=== PATIENT | male | born 1950 | race Caucasian/White ===

== ENCOUNTER 2018-07-05 11:38 | Observation (INO) | payer MEDICARE ==
[~2018-07-05] VITALS: Ht 170.2 cm; Wt 82.3 kg
[~2018-07-05 11:38] MED LIST: ASACOL HD800 MG PO; ASPIRIN325 MG PO; AUGMENTIN 875-1 EACH PO; CETIRIZINE HCL10 MG PO; CIPRO500 MG PO; DICYCLOMINE HCL10 MG PO; DICYCLOMINE HCL20 MG PO; FISH OIL500 M1 PO; FLAGYL250 MG PO; FLAX SEED OIL1000 MG PO; FOLIC ACID1 MG PO; LISINOPRIL10 MG PO; LOPID600 MG PO; METRONIDAZOLE500 MG PO; MULTIVITAMINS1 EAC8 PO; NIACIN500 M2 PO; PREDNISONE10 MG PO; RANITIDINE HCL150 MG PO; SIMVASTATIN20 MG PO; ZOFRAN ODT4 MG PO; [UNRECOGNIZED DRUG - OTHER] PO
[2018-07-05] MEDS ORDERED: ONDANSETRON HCL INJ 2MG/ML 2ML 2 MG/ML VIAL IV STA ×2 (11:44→16:21)
[2018-07-05] MEDS ORDERED: SODIUM CHLORIDE 0.9% 1000ML 1,000 ML IV STA (11:44)
[2018-07-05] MEDS ORDERED: DIATRIZOATE MEGL/DIATRIZOA SOD 30 ML BTL PO ONE (12:13)
[2018-07-05] MEDS: PIPER-TAZ 3.375 GM 50 ML IV SCH ×2 (13:00→23:28)
[2018-07-05 13:12] LABS: CLARITY,URINE CLEAR (CLEAR); COLOR,URINE YELLOW (YELLOW)
[2018-07-05 13:13] LABS: BILIRUBIN,URINE NEGATIVE (NEGATIVE); KETONES,URINE 1+ (NEGATIVE); LEUKOCYTE ESTERASE ,URINE NEGATIVE (NEGATIVE); NITRITE,URINE NEGATIVE (NEGATIVE); PROTEIN,URINE DIPSTICK NEGATIVE (NEGATIVE); URINE UROBILINOGEN 0.2 mg/dL (0.2 - 1)
[2018-07-05 13:26] LABS: BACTERIA,URINE FEW /HPF; EPITHELIAL CELLS,URINE RARE /LPF; RBC,URINE 0-5 /HPF (0-5); WBC,URINE (MAN) 0-5 /HPF (0-5)
[2018-07-05 13:37] LABS: BASOPHILS % 0.3 % (0.0-1.0); EOSINOPHILS % 0.1 % (0.0-6.0); HEMOGLOBIN 14.6 g/dL (14.0-18.0); LYMPHOCYTES # (AUTO) 1.1 (1.0-3.2); LYMPHOCYTES % 11.4 % (18.0-39.1); MEAN CORPUSCULAR HEMOGLOBIN 29.3 pg (28-32); MEAN CORPUSCULAR VOLUME 86.3 fL (81-99); MONOCYTES # (AUTO) 0.5 (0.2-0.8); MONOCYTES % 5.4 % (4.4-11.3); NEUTROPHILS # (AUTO) 8.1 (2.1-6.9); NEUTROPHILS % 82.5 % (38.7-80.0); PLATELET COUNT 183 x10e3/uL (140-360); RED BLOOD COUNT 4.98 x10e6/uL (4.3-5.7); RED CELL DISTRIBUTION WIDTH 13.4 % (11.7-14.4)
[2018-07-05 13:55] LABS: ALANINE AMINOTRANSFERASE 21 IU/L (0-55); ALBUMIN 4.1 g/dL (3.5-5.0); ALBUMIN/GLOBULIN RATIO 1.1 (0.8-2.0); ALKALINE PHOSPHATASE 66 IU/L (40-150); ANION GAP 12.5 mmol/L (8-16); BLOOD UREA NITROGEN 13 mg/dL (7-26); BUN/CREATININE RATIO 13 (6-25); CALCIUM 9.3 mg/dL (8.4-10.2); CARBON DIOXIDE 25 mmol/L (22-29); CHLORIDE 101 mmol/L (98-107); CREATINE KINASE 132 IU/L (30-200); CREATININE, SERUM 0.97 mg/dL (0.72-1.25); EST GLOMERULAR FILTRATION RATE > 60 ML/MIN (60-); GLUCOSE 162 mg/dL (74-118); LIPASE 31 U/L (8-78); POTASSIUM 3.5 mmol/L (3.5-5.1); SODIUM 135 mmol/L (136-145)
[2018-07-05] MEDS ORDERED: METRONIDAZOLE 500MG/NS 100ML 100 ML IV SCH (14:00)
[2018-07-05] MEDS ORDERED: MORPHINE SULFATE INJ 4 MG/ML INJ 1ML IV NR (14:15)
[2018-07-05] MEDS ORDERED: SODIUM CHLORIDE 0.9% 50ML 50 ML ONE (15:09)
[2018-07-05] MEDS ORDERED: IOPAMIDOL 370 MG/ML 200 ML INFUS..BTL INJ ONE (15:09)
--- NOTE | 2018-07-05 16:14 | Diagnostic Imaging Report ---
ADDENDUM #1 The above findings were discussed with Dr. Adams on 07/05/2018 at 4:10 PM, who indicated that the communication was understood. Signed by: Dr. Afua Morton MD on 07/05/2018 4:17 PM ORIGINAL REPORT EXAM: CT Abdomen and Pelvis WITH contrast INDICATION: Abdominal Pain, evaluate for diverticulitis COMPARISON: CT abdomen/pelvis with contrast 05/16/2016. TECHNIQUE: Abdomen and pelvis were scanned utilizing a multidetector helical scanner from the lung base to the pubic symphysis after administration of IV contrast. Coronal and sagittal reformations were obtained. Routine protocol was performed. Scan was performed when during portal venous phase. IV CONTRAST: 100 cc of Isovue 370 ORAL CONTRAST: Water COMPLICATIONS: None RADIATION DOSE: Total DLP: 511.3 mGy*cm Dose modulation, iterative reconstruction, and/or weight based adjustment of the mA/kV was utilized to reduce the radiation dose to as low as reasonably achievable. FINDINGS: LINES and TUBES: None. LOWER THORAX: There is a partially seen 3 mm ground glass nodule in the right middle lobe on series 2, image 1, likely infectious or inflammatory. Patchy dependent atelectasis. Coronary atherosclerosis. HEPATOBILIARY: No evidence of focal lesion. No biliary ductal dilation. GALLBLADDER: No radio-opaque stones or sludge. No wall thickening. SPLEEN: No splenomegaly. PANCREAS: No focal masses or ductal dilatation. ADRENALS: No adrenal nodules KIDNEYS/URETERS: Kidneys enhance symmetrically. No evidence of hydronephrosis, solid mass, or stone. Simple right-sided renal cysts, measuring up to 3.9 cm in the inferior pole, previously 3.6 cm. Subcentimeter bilateral renal hypodensities are too small to characterize, but likely represent cysts. GI TRACT: The distal colon is decompressed. There appears to be mild wall thickening within the sigmoid colon, as seen on series 2, image 71. No significant surrounding inflammatory changes. No evidence of bowel obstruction. The appendix is dilated, measuring up to 1.5 cm. There are new appendicoliths. There are mild inflammatory changes near the appendiceal tip and base. Note is made that the appendix was dilated measuring up to 1.[address] from 05/16/2016. PELVIC ORGANS/BLADDER: Unremarkable. LYMPH NODES: No lymphadenopathy. VESSELS: Mild scattered atherosclerotic changes within the abdominal aorta and branch vessels. PERITONEUM / RETROPERITONEUM: No free air or fluid. BONES AND SOFT TISSUES: No acute osseous abnormality. No suspicious lytic or blastic lesions. Small fat-containing left inguinal hernia. Tiny fat-containing umbilical hernia. CONCLUSION: Dilated appendix, measuring up to 1.5 cm, not significantly changed in size compared to CT from 05/16/2016. There are new appendicoliths. There are mild inflammatory changes near the appendiceal base and tip with suspected early appendicitis in the setting of acute pain. No evidence of perforation or drainable collection. Decompressed distal colon with mild wall thickening within the sigmoid colon, which may reflect sequela of prior inflammatory changes in this patient with history of colitis. . Signed by: Dr. Afua Morton MD on 07/05/2018 4:10 PM
[2018-07-05] MEDS ORDERED: MORPHINE SULFATE INJ 4 MG/ML INJ 1ML IV STA (16:21)
[2018-07-05] MEDS ORDERED: SODIUM CHLORIDE 0.9% 1000ML 1,000 ML IV SCH (16:34)
[2018-07-05] MEDS ORDERED: MORPHINE SULFATE 2 MG/ML SYR 1ML IV PRN (16:45)
[2018-07-05] MEDS ORDERED: ONDANSETRON HCL INJ 2MG/ML 2ML 2 MG/ML VIAL IV PRN ×2 (16:45→18:30)
[2018-07-05] MEDS ORDERED: MORPHINE SULFATE INJ 4 MG/ML INJ 1ML IV PRN ×2 (16:45→18:45)
--- OUTSIDE RECORDS SUMMARY | 2018-07-05 16:49 | XMS REPORT ---
Author Author [facility] Address Unknown Phone Unavailable Care Team Providers Care Clinical Research Analyst Name Role Phone Jose Guadalupe HENRY Unavailable Unavailable Problems This patient has no known problems. Allergies, Adverse Reactions, Alerts This patient has no known allergies or adverse reactions. Medications This patient has no known medications. Results Test Description Test Time Test Comments Text Results Atomic Results Result Comments CT ABDOMEN/PELVIS W 2018-07-05 15:47:00 [facility] [address] [address] Patient Name: JONATHON ALBERTO MR #: [id number] : 1950 Age/Sex: 67/M Req #: [id number] Adm Physician: Ordered by: NICK WILLAMS SCRUM PROJECT MANAGER Report #: [id number] Location: ER Room/Bed: Procedure: [id number] CT/CT ABDOMEN/PELVIS W Exam Date: 07/05/18 Exam Time: 1430 REPORT STATUS: Signed ADDENDUM #1 The above findin gs were discussed with Dr. Henry on 07/05/2018 at 4:10 PM, who indicated that the communication was understood. Signed by: Dr. Linda Chacon MD on 07/05/2018 4:17 PM ORIGINAL REPORT EXAM: CT Abdomen and Pelvis WITH contrast INDICATION: Abdominal Pain, evaluate for diverticulitis COMPARISON: CT abdomen/pelvis with contrast 05/16/2016. TECHNIQUE: Abdomen and pelvis were scanned utilizing a multidetector helical scanner from the lung base to the pubic symphysis after administration of IV contrast. Coronal and sagittal reformations were obtained. Routine protocol was performed. Scan was performed when during portal venous phase. IV CONTRAST: 100 cc of Isovue 370 ORAL CONTRAST: Water COMPLICATIONS: None RADIATION DOSE: Total DLP: 511.3 mGy*cm Dose modulation, iterative reconstruction, and/or weight based adjustment of the mA/kV was utilized to reduce the radiation dose to as low as reasonably achievable. FINDINGS: LINES and TUBES: None. LOWER THORAX: There is a partially seen 3 mm ground glass nodule in the right middle lobe on series 2, image 1, likely infectious or inflammatory. Patchy dependent atelectasis. Coronary atherosclerosis. HEPATOBILIARY: No evidence of focal lesion. No biliary ductal dilation. GALLBLADDER: No radio-opaque stones or sludge. No wall thickening. SPLEEN: No splenomegaly. PANCREAS: No focal masses or ductal dilatation. ADRENALS: No adrenal nodules KIDNEYS/URETERS: Kidneys enhance symmetrically. No evidence of hydronephrosis, solid mass, or stone. Simple right-sided renal cysts, measuring up to 3.9 cm in the inferior pole, previously 3.6 cm. Subcentimeter bilateral renal hypodensities are too small to characterize, but likely represent cysts. GI TRACT: The distal colon is decompressed. There appears to be mild wall thickening within the sigmoid colon, as seen on series 2, image 71. No significant surrounding inflammatory changes. No evidence of bowel obstruction. The appendix is dilated, measuring up to 1.5 cm. There are new appendicoliths. There are mild inflammatory changes near the appendiceal tip and base. Note is made that the appendix was dilated measuring up to 1.[address] from 05/16/2016. PELVIC ORGANS/BLADDER: Unremarkable. LYMPH NODES: No lymphadenopathy. VESSELS: Mild scattered atherosclerotic changes within the abdominal aorta and branch vessels. PERITONEUM / RETROPERITONEUM: No free air or fluid. BONES AND SOFT TISSUES: No acute osseous abnormality. No suspicious lytic or blastic lesions. Small fat-containing left inguinal hernia. Tiny fat-containing umbilical hernia. CONCLUSION: Dilated appendix, measuring up to 1.5 cm, not significantly changed in size compared to CT from 05/16/2016. There are new appendicoliths. There are mild inflammatory changes near the appendiceal base and tip with suspected early appendicitis in the setting of acute pain. No evidence of perforation or drainable collection. Decompressed distal colon with mild wall thickening within the sigmoid colon, which may reflect sequela of prior inflammatory changes in this patient with history of colitis. . Signed by: Dr. Linda Chacon MD on 07/05/2018 4:10 PM Dictated By: LINDA CHACON MD [id number] Transcribed By: LAKESHA on 07/05/18 1610 COPY TO: NICK WILLAMS NP
[2018-07-05] MEDS ORDERED: DEXAMETHASONE SOD PHOS INJ 4 MG/ML VIAL ONE (18:06)
[2018-07-05] MEDS ORDERED: ROCURONIUM BROMIDE 10 MG/ML 5ML VIAL ONE (18:06)
[2018-07-05] MEDS ORDERED: ACETAMINOPHEN 1000 MG/100 ML IV ONE (18:06)
[2018-07-05] MEDS ORDERED: SEVOFLURANE INHAL SOLN 250 ML PEN BTL ONE (18:06)
[2018-07-05] MEDS ORDERED: ONDANSETRON HCL INJ 2MG/ML 2ML 2 MG/ML VIAL ONE (18:06)
[2018-07-05] MEDS ORDERED: PROPOFOL IV EMULSION 10 MG/ML 20 ML VIAL ONE (18:06)
[2018-07-05] MEDS ORDERED: LIDOCAINE HCL 2% LOCAL INJ 5 ML SDV VIAL INJ ONE (18:06)
[2018-07-05] MEDS ORDERED: BUPIVACAINE 0.25%/EPI 30ML SDV INJ ONE (18:51)
[2018-07-05] MEDS ORDERED: SUGAMMADEX SODIUM 200 MG/2 ML VIAL IV ONE (19:54)
[2018-07-05 20:00] VITALS: BP 110/56
--- NOTE | 2018-07-05 20:52 | NUR ---
PT ARRIVED BY STRETCHER TO ROOM 104, PT IS AAOX3, RR EVEN AND NON-LABORED, ON RA. NO S/SX OF DISTRESS NOTED. PT ABLE TO SCOOT OVER TO HOSPITAL BED FROM STRETCHER WITH STANDBY ASSIST. LEFT PT LAYING SEMI FOWLERS IN BED, BED IN LOW LOCKED POSITION, SIDE RAILS UPX2, CALL LIGHT AND PHONE WITHIN REACH.
[2018-07-05 20:55] VITALS: BP 110/56
[2018-07-05] MEDS: DEXTROSE 5%/LACTATED RINGERS 1,000 ML IV SCH ×2 (21:32→23:28)
[2018-07-05 21:43] VITALS: BP 110/56
[2018-07-05 22:00] VITALS: BP 110/56
[2018-07-05] MEDS ORDERED: APRISO0.375 GM PO (22:39)
[2018-07-05] MEDS ORDERED: SINGULAIR10 MG PO (22:39)
[2018-07-05] MEDS ORDERED: FLOMAX0.4 MG PO (22:39)
[2018-07-06] VITALS: BP 116/56
--- NOTE | 2018-07-06 01:49 | History and Physical ---
CHIEF COMPLAINT: Abdominal pain. HISTORY OF PRESENT ILLNESS: 67-Year-old white man, who presents to [facility] with sudden onset of intense abdominal pain. The patient states the pain started in the guide travel hours on the day of admission and caused him to wake up from the sleep. The patient states the pain was actually in the bilateral upper quadrant area, radiating to his bilateral lower quadrant area. The patient states that he had nausea as well as anorexia. The patient had any vomiting or diarrhea. In the emergency room, the patient was found to have white blood cell count 9800 with 82% segments. The patient's chemistries are unremarkable. The patient underwent a CT of the abdomen and pelvis with intravenous contrast that revealed a dilated appendix measuring up to 1.5 cm. The radiologist stated there was new appendicolith. There was mild inflammatory changes near the appendiceal base, but the radiologist felt that was consistent with early appendicitis. The radiologist also noted mild wall thickening within the sigmoid colon. The patient was admitted for further evaluation and treatment. REVIEW OF SYSTEMS: GENERAL: As per HPI. No fever or chills. HEENT: No headaches. No visual changes. CARDIOVASCULAR SYSTEM: No chest pain. No shortness of breath or cough. GI: Nausea and abdominal pain as per HPI. No vomiting or diarrhea. : No UTIs. NEUROMUSCULAR: Denies any limb weakness or numbness. ALLERGIES: 1. SULFA ANTIBIOTICS. 2. DECONGESTANTS. FAMILY HISTORY: The patient's mom who suffer from recurrent bouts of diverticulitis. PAST MEDICAL HISTORY: 1. Ulcerative colitis. 2. Hypertensive heart disease. 3. Hyperlipidemia. 4. GERD. PAST SURGICAL HISTORY: 1. Tonsillectomy. 2. Lumbar spine surgery. MEDICATIONS: 1. Zyrtec 10 mg daily. 2. Dicyclomine 10 mg t.i.d. 3. Flaxseed oil 1000 mg b.i.d. 4. Folic acid 1 mg daily. 5. Lisinopril 40 mg daily. 6. Asacol 800 mg daily. 7. Multivitamin daily. 8. [place]-3 fish oil 1000 mg b.i.d. 9. Prednisone 40 mg daily. 10. Ranitidine 150 mg b.i.d. 11. Simvastatin 10 mg at bedtime. SOCIAL HISTORY: The patient is , lives with his . He is retired. No history of tobacco or alcohol use. PHYSICAL EXAMINATION: GENERAL: He is awake, alert, and fluent very pleasant. His is at bedside. VITAL SIGNS: Height 5 feet and 7 inches, weight 174 pounds, BMI 27. Blood pressure is 120/65, pulse 73, respiratory 16, oxygen saturation is 97% on room air, and temperature is 96.3. INTEGUMENT: Skin is warm and dry. No pallor, jaundice, or diaphoresis. HEENT: Anicteric sclerae. Moist mucous membranes. NECK: Supple. CARDIOVASCULAR: Regular rate and rhythm. LUNGS: No rales. No rhonchi or wheezes. ABDOMEN: The patient has exquisite tenderness to palpate in the right lower quadrant area. Negative obturator sign though. The patient has minimal tenderness on palpating the left lower quadrant area. EXTREMITIES: No edema or deformity. NEUROLOGIC: Intact. DIAGNOSES: 1. Acute appendicitis. 2. History of ulcerative colitis. 3. Hypertensive heart disease. PLAN: 1. Intravenous antibiotics. 2. Nothing by mouth. 3. Pain control. 4. Consult General Surgery. MD ALLY Lopez/MONO /[id number] MTDD
--- NOTE | 2018-07-06 02:49 | Consultation ---
DATE OF CONSULTATION: 07/05/2018 CHIEF COMPLAINT: Abdominal pain. HISTORY OF PRESENT ILLNESS: The patient is a 67-year-old male with 1-day history of pain right lower quadrant with nausea. No vomiting. No diarrhea or fevers. PAST MEDICAL HISTORY: Significant for hypertension, hyperlipidemia. SURGICAL HISTORY: Positive for shoulder surgery. ALLERGIES: HE HAS ALLERGIC REACTION TO SULFA. SOCIAL HABITS: He denies smoking or alcohol abuse. REVIEW OF SYSTEMS: No chest pain or shortness of breath. PHYSICAL EXAMINATION: VITAL SIGNS: Stable. Afebrile. GENERAL: He is awake, alert, in moderate discomfort. HEENT: Sclerae anicteric. NECK: Supple. LUNGS: Clear. HEART: Regular rate and rhythm. ABDOMEN: Soft with guarding and tenderness and rebound in the right lower quadrant. EXTREMITIES: Without cyanosis or edema. LABORATORY DATA: White cell count 9.8, hemoglobin of 14. Creatinine of 0.9. Lipase 31. CT of the abdomen revealed dilated appendix with fecalith. There was some inflammation at the base of the appendix. ASSESSMENT: Appendicitis. PLAN: Laparoscopic appendectomy. Attendant risks has been discussed. Rodríguez Dolan MD DNL/MODL /[id number]
--- NOTE | 2018-07-06 03:09 | Operative Report ---
DATE OF PROCEDURE: 07/05/2018 SURGEON: Rodríguez Dolan MD PREOPERATIVE DIAGNOSIS: Appendicitis. POSTOPERATIVE DIAGNOSIS: Appendicitis. OPERATIVE PROCEDURE: Laparoscopic appendectomy. CHIP MIXING MACHINE OPERATOR: None. ANESTHESIA: General endotracheal, Dr. Cortés. INDICATIONS: A 67-year-old male with 1-day history of pain in the right lower quadrant with CT scan showing evidence of appendicitis. The patient consented for laparoscopic appendectomy. Attendant risks discussed. PROCEDURE FINDINGS: Acute appendicitis. DESCRIPTION OF PROCEDURE: The patient was brought to the OR, intubated. The abdomen was prepped with alcohol and draped in sterile fashion. Infraumbilical incision was made and a 12 mm port inserted. Insufflation then began. Under direct vision, other ports I placed in a suprapubic and right upper quadrant. The appendix was localized and noted to be grossly inflamed and partially gangrene. Mesoappendix controlled with the LigaSure instrument down to the neck. The appendix was then transected flush to the base cecum with the Endo-CONNIE stapler white load. The appendix was placed in an Endopouch and retrieved out of the peritoneal cavity. Operative field was irrigated. Hemostasis was achieved. All ports were removed under direct vision. Fascia closure with 0-Vicryl. Skin was closed with subcuticular stitch. The patient was extubated and transported to recovery room. ESTIMATED BLOOD LOSS: 3 mL. Rodríguez Dolan MD DNL/MODL /[id number]
[2018-07-06 04:00] VITALS: BP 125/63
[2018-07-06] MEDS: PIPER-TAZ 3.375 GM 50 ML IV SCH ×2 (05:16→11:36)
[2018-07-06 07:14] LABS: BASOPHILS % 0.1 % (0.0-1.0); HEMATOCRIT 38.1 % (38.2-49.6); LYMPHOCYTES # (AUTO) 1.4 (1.0-3.2); LYMPHOCYTES % 10.1 % (18.0-39.1); MEAN CORPUSCULAR HEMOGLOBIN 29.4 pg (28-32); MEAN CORPUSCULAR HGB CONC 34.1 g/dL (31-35); MEAN CORPUSCULAR VOLUME 86.2 fL (81-99); MONOCYTES # (AUTO) 0.9 (0.2-0.8); MONOCYTES % 6.9 % (4.4-11.3); NEUTROPHILS # (AUTO) 11.1 (2.1-6.9); NEUTROPHILS % 82.3 % (38.7-80.0); PLATELET COUNT 176 x10e3/uL (140-360); RED BLOOD COUNT 4.42 x10e6/uL (4.3-5.7); RED CELL DISTRIBUTION WIDTH 13.5 % (11.7-14.4)
--- NOTE | 2018-07-06 07:15 | NUR ---
PT RESTING IN BED AA0X3. IS AT BEDSIDE. PT IS IN NO S.S OF DISTRESS. DENIES PAIN WHEN RESTING PT IS S/P LAP APPENDECTOMY. 3 TROCHAR SITES ARE COVERED WITH SMALL BANDAGE. NO DRAINAGE NOTED. CLEAN DRY AND INTACT PT HAS A LEFT AC 20 G WITH NS AT 100 SITE IS C/D PT IS ON FULL LIQUID THIS AM. WILL ADVANCE IF TOLERATING AT THIS TIME I WILL CONTINUE TO MONITOR PT CLOSELY, SIDE RAILSX2, BED WHEELS LOCKED ,CALL LIGHT IS WITHIN EASY REACH INSTRUCTED TO CALL FOR ASSISTANCE IF NEEDED
[2018-07-06 07:32] LABS: ALANINE AMINOTRANSFERASE 13 IU/L (0-55); ALBUMIN 3.1 g/dL (3.5-5.0); ALBUMIN/GLOBULIN RATIO 0.9 (0.8-2.0); ALKALINE PHOSPHATASE 52 IU/L (40-150); ANION GAP 9.3 mmol/L (8-16); BLOOD UREA NITROGEN 10 mg/dL (7-26); BUN/CREATININE RATIO 11 (6-25); CALCIUM 8.8 mg/dL (8.4-10.2); CARBON DIOXIDE 26 mmol/L (22-29); CHLORIDE 107 mmol/L (98-107); CREATININE, SERUM 0.88 mg/dL (0.72-1.25); EST GLOMERULAR FILTRATION RATE > 60 ML/MIN (60-); GLUCOSE 155 mg/dL (74-118); POTASSIUM 4.3 mmol/L (3.5-5.1); SODIUM 138 mmol/L (136-145)
[2018-07-06 07:55] VITALS: BP 128/61
[2018-07-06 08:40] VITALS: BP 128/61
--- NOTE | 2018-07-06 09:40 | NUR ---
PT TOLERATED FULL LIQUID DIET, CHANGED TO GI SOFT AT THIS TIME
--- NOTE | 2018-07-06 11:34 | NUR ---
SPOKE WITH MD WHITE REGARDING NO IV ACCESS AND NOON ABX DUE STATES PT DOES NOT NEED ANY MORE IV ABX. AND CAN ADVANCE DIET STATES PT CAN GO HOME WHEN ATTENDING ROUNDS. ORDERS RECEIVED
[2018-07-06 11:59] VITALS: BP 114/67
--- NOTE | 2018-07-06 12:49 | NUR ---
IMM EXPLAINED TO PT , SIGNED BY PT AND PLACED ON CHART COPY TO PT IN CARE TRANSITIONS FOLDER
[2018-07-06] MEDS ORDERED: FENTANYL CITRATE/PF 100MCG/2 ML INJ ONE (14:19)
[2018-07-06] MEDS ORDERED: MIDAZOLAM HCL 2 MG/2 ML VIAL ONE (14:19)
--- NOTE | 2018-07-06 14:56 | NUR ---
DC INSTRUCTIONS AND PRESCRIPTIONS GIVEN. PT VERBALIZED UNDERSTANDING PT HAS NO IV PT IS NOW OFF UNIT TO HOME VIA WHEEL CHAIR
--- NOTE | 2018-08-18 05:40 | Discharge Summary ---
CHIEF COMPLAINT: Abdominal pain. FINAL DIAGNOSES: Appendicitis, ulcerative colitis, hypertension. HOSPITAL COURSE: A 67-year-old male presents to the emergency room in the facility complaining of abdominal pain with no radiation, generalized in location, started two days prior to admission, not worsened by anything, not relieved by anything, associated with nausea. The patient has had some similar symptoms. Has history of colitis, has been hospitalized for this. Underwent review and evaluation in the emergency room. Studies were revealing evidence of suspected possible appendicitis and the patient was admitted to the facility for care regarding acute appendicitis. No localized peritonitis, generalized peritonitis, or perforation or abscess. With his presentation with admission, he was reviewed by Surgery, Dr. Dolan, and following his evaluation, his assessment was appendicitis. Plan is for laparoscopic appendectomy. He was taken to the surgery suite on 07/05/[address] oDlan. Preop diagnosis was appendicitis, postop diagnosis same. Procedure was laparoscopic appendectomy. Estimated blood loss 3 mL. The patient tolerated the procedure well, returned to recovery room in good condition. The patient responded well postop, was receiving Zosyn, IV fluids, medications for pain, was able to have his diet increased to a GI soft diet which he tolerated well. Postop was uneventful. The patient was cleared for discharge home in good condition. IMAGING: CT abdomen and pelvis, findings show dilated appendix measuring up to 1.5 cm, not significantly changed in size compared to CT done May 16, 2016. There are new appendicolith. There are mild inflammatory changes near the appendiceal base and tip, was suspected early appendicitis in the setting of acute pain. No evidence of perforation or drainable collection. Further findings were showing inflammatory changes in the colon in the patient with a history of colitis. Cultures, blood and urine were negative. LABORATORY STUDIES: On the patient shows initial CBC, white cell count 9800, H and H normal. Followup white cell count one day later shows a rise in the white cell count of 13,500, H and H is fallen slightly to 13.0 and 38.1. Urinalysis unremarkable. Chemistries show stable electrolytes. Initial glucose 162, final glucose 114. Did quite well post procedure, was able to be discharged the day after the procedure. IVs were discontinued. The patient will continue on p.o. medications and the patient was released home in good condition. The patient will continue on his current diet. No equipments or supplies are necessary. No drains or Wallace was needed. Activity level as directed by me as well as by Dr. Dolan. Followup care, he will be reporting back to Dr. Dolan's office within 2 to 3 weeks for post surgical follow. He will also be returning back to his PCP within 7 to 10 days. He will be continued on cetirizine 10 mg p.o. at bedtime, dicyclomine hydrochloride 10 mg p.o. t.i.d. p.r.n., flaxseed oil 1000 mg p.o. b.i.d., folic acid 1 mg p.o. daily, lisinopril 40 mg p.o. daily, Apriso 1.5 g p.o. daily, Singulair 10 mg p.o. at bedtime, multivitamin one tablet daily, omega-3 fatty acid 1000 mg capsule p.o. b.i.d., simvastatin 20 mg p.o. at bedtime, Flomax 0.4 mg p.o. b.i.d. If any other questions or concerns, he may contact his PCP or be contacting Dr. Dolan. Dictated by ANA Monae James Echavarria MD CC/MONO /[id number]
== END 2018-07-06 14:54 | disposition home or self-care (01) ==
LOC: ER 11:38 → ERHOLD 16:34 → INTOOBSV 16:34 → MED/SURG 20:55
DX: K35.80 Unspecified acute appendicitis (principal); I11.9 Hypertensive heart disease without heart failure; K51.90 Ulcerative colitis, unspecified, without complications
CPT/HCPCS: 36415 ×2; 44970; 74177; 80053 ×2; 81001; 82550; 82553; 82948; 83605; 83690; 84484; 85025 ×2; 87040; 87086; 88304; 93005; 99284; G0378 ×2; J0131; J1100; J2001; J2250; J2270; J2405; J2543 ×2; J2704; J7030; J7121 ×2; Q9967; J3010

== ENCOUNTER 2022-01-11 12:46 | Observation (INO) | payer MEDICARE ==
[~2022-01-11] VITALS: Ht 170.2 cm; Wt 82.1 kg
[~2022-01-11 12:46] MED LIST changes: +APRISO0.375 GM PO; +FLOMAX0.4 MG PO; +SINGULAIR10 MG PO
[2022-01-11 13:08] LABS: BASOPHILS # (AUTO) 0.1 (0.0-0.1); BASOPHILS % 0.5 % (0.0-1.0); EOSINOPHILS # (AUTO) 0.2 (0.0-0.4); EOSINOPHILS % 2.1 % (0.0-6.0); HEMATOCRIT 44.4 % (38.2-49.6); HEMOGLOBIN 14.1 g/dL (14.0-18.0); LYMPHOCYTES # (AUTO) 3.2 (1.0-3.2); MEAN CORPUSCULAR HEMOGLOBIN 28.7 pg (28-32); MEAN CORPUSCULAR HGB CONC 31.8 g/dL (31-35); MEAN CORPUSCULAR VOLUME 90.4 fL (81-99); MONOCYTES # (AUTO) 1.4 (0.2-0.8); MONOCYTES % 11.9 % (4.4-11.3); NEUTROPHILS # (AUTO) 6.6 (2.1-6.9); NEUTROPHILS % 57.4 % (38.7-80.0); PLATELET COUNT 220 x10e3/uL (140-360); RED BLOOD COUNT 4.91 x10e6/uL (4.3-5.7); RED CELL DISTRIBUTION WIDTH 13.3 % (11.7-14.4)
[2022-01-11] MEDS ORDERED: Morphine 4mg INJECTION 4 MG/ML INJ IV ONE (13:30)
[2022-01-11 13:33] LABS: ALBUMIN 3.9 g/dL (3.5-5.0); ALBUMIN/GLOBULIN RATIO 0.8 (0.8-2.0); ANION GAP 13.8 mmol/L (8-16); CALCIUM 8.8 mg/dL (8.4-10.2); POTASSIUM 3.8 mmol/L (3.5-5.1)
[2022-01-11] MEDS ORDERED: ONDANSETRON HCL INJ 2MG/ML 2ML 2 MG/ML VIAL IV ONE (13:35)
[2022-01-11 13:50] LABS: CREATININE, SERUM 1.03 mg/dL (0.72-1.25)
[2022-01-11] MEDS ORDERED: NITROGLYCERIN 2% OINT 1 GM PKT TOP STA (15:14)
[2022-01-11] MEDS ORDERED: IOPAMIDOL 370 MG/ML 100 ML INFUS..BTL INJ ONE (15:22)
[2022-01-11] MEDS: SODIUM CHLORIDE 0.9% 1000ML 1,000 ML IV SCH (15:33)
[2022-01-11 16:55] LABS: CREATINE KINASE MB 1.3 ng/mL (0-5.0)
[2022-01-11] MEDS: Morphine 4mg INJECTION 4 MG/ML INJ IV PRN ×2 (17:27→22:25)
[2022-01-11] MEDS: ONDANSETRON HCL INJ 2MG/ML 2ML 2 MG/ML VIAL IV PRN ×2 (17:27→22:24)
[2022-01-11] MEDS ORDERED: POLYETHYLENE GLYCOL 3350 17 GM PACK PO PRN (19:15)
[2022-01-11] MEDS ORDERED: TEMAZEPAM 7.5 MG CAP PO PRN (19:15)
[2022-01-11] MEDS ORDERED: METOPROLOL TARTRATE INJ 1 MG/ML VIAL IV PRN (19:15)
[2022-01-11] MEDS ORDERED: ACETAMINOPHEN 325 MG TAB PO PRN (19:15)
[2022-01-11 19:57] VITALS: BP 165/83
[2022-01-11 20:00] VITALS: BP 145/80
[2022-01-11] MEDS ORDERED: MYRBETRIQ25 MG (20:07)
[2022-01-11] MEDS ORDERED: FAMOTIDINE20 MG PO (20:07)
[2022-01-11] MEDS ORDERED: NEXIUM40 MG PO (20:07)
[2022-01-11] MEDS ORDERED: AMLODIPINE BESYL5 MG PO (20:07)
[2022-01-11] MEDS ORDERED: CETIRIZINE HCL10 MG (20:09)
[2022-01-11 20:27] VITALS: BP 145/82
[2022-01-11 20:28] VITALS: BP 145/82
[2022-01-11 22:59] LABS: CLARITY,URINE CLEAR (CLEAR); COLOR,URINE YELLOW (YELLOW); LEUKOCYTE ESTERASE ,URINE NEGATIVE (NEGATIVE); NITRITE,URINE NEGATIVE (NEGATIVE); PROTEIN,URINE DIPSTICK NEGATIVE (NEGATIVE)
[2022-01-11 23:00] LABS: KETONES,URINE 2+ (NEGATIVE); URINE UROBILINOGEN 0.2 mg/dL (0.2 - 1)
[2022-01-11 23:09] LABS: CREATINE KINASE MB 0.9 ng/mL (0-5.0)
[2022-01-11 23:13] LABS: BACTERIA,URINE FEW /HPF; EPITHELIAL CELLS,URINE FEW /LPF; WBC,URINE (MAN) 0-5 /HPF (0-5)
[2022-01-12 00:45] VITALS: BP 118/65
[2022-01-12] MEDS: SODIUM CHLORIDE 0.9% 1000ML 1,000 ML IV SCH ×2 (02:50→07:00)
[2022-01-12 04:00] VITALS: BP 112/48
[2022-01-12] MEDS: ONDANSETRON HCL INJ 2MG/ML 2ML 2 MG/ML VIAL IV PRN (04:21)
[2022-01-12] MEDS: Morphine 4mg INJECTION 4 MG/ML INJ IV PRN (04:22)
[2022-01-12 05:11] LABS: BASOPHILS # (AUTO) 0.1 (0.0-0.1); BASOPHILS % 0.7 % (0.0-1.0); EOSINOPHILS # (AUTO) 0.1 (0.0-0.4); EOSINOPHILS % 1.3 % (0.0-6.0); HEMATOCRIT 34.9 % (38.2-49.6); HEMOGLOBIN 11.7 g/dL (14.0-18.0); LYMPHOCYTES # (AUTO) 2.5 (1.0-3.2); LYMPHOCYTES % 27.3 % (18.0-39.1); MEAN CORPUSCULAR HEMOGLOBIN 28.6 pg (28-32); MEAN CORPUSCULAR HGB CONC 33.5 g/dL (31-35); MEAN CORPUSCULAR VOLUME 85.3 fL (81-99); MONOCYTES # (AUTO) 1.5 (0.2-0.8); MONOCYTES % 16.1 % (4.4-11.3); NEUTROPHILS % 54.3 % (38.7-80.0); PLATELET COUNT 179 x10e3/uL (140-360); RED BLOOD COUNT 4.09 x10e6/uL (4.3-5.7); RED CELL DISTRIBUTION WIDTH 13.6 % (11.7-14.4)
[2022-01-12 05:29] LABS: ALBUMIN 3.1 g/dL (3.5-5.0); ALBUMIN/GLOBULIN RATIO 0.9 (0.8-2.0); ANION GAP 10.6 mmol/L (8-16); CALCIUM 7.9 mg/dL (8.4-10.2); CREATININE, SERUM 0.9 mg/dL (0.72-1.25); POTASSIUM 3.6 mmol/L (3.5-5.1)
[2022-01-12 05:51] LABS: MAGNESIUM 1.7 MG/DL (1.3-2.1); PHOSPHORUS 2.5 MG/DL (2.3-4.7)
[2022-01-12 05:59] LABS: CREATINE KINASE MB 0.9 ng/mL (0-5.0)
[2022-01-12 06:12] LABS: THYROID STIMULATING HORMONE 2.75 uIU/mL (0.350-4.940)
[2022-01-12 08:04] VITALS: BP 135/77
[2022-01-12] MEDS ORDERED: ASPIRIN 81 MG ENTERIC COATED PO SCH (09:00)
[2022-01-12] MEDS: FAMOTIDINE 20 MG TAB PO SCH ×2 (09:36→16:30)
[2022-01-12] MEDS: DOCUSATE SODIUM 100 MG CAP PO SCH ×2 (09:36→16:35)
[2022-01-12] MEDS ORDERED: TEMAZEPAM 15 MG CAP PO PRN (10:45)
[2022-01-12 10:55] VITALS: BP 135/77
[2022-01-12] MEDS ORDERED: METOPROLOL SUCCINATE 25 MG TAB XL PO SCH (11:00)
[2022-01-12 11:42] VITALS: BP 125/67
[2022-01-12] MEDS ORDERED: MESALAMINE 0.375 GM CAPCR PO SCH (16:00)
[2022-01-12 16:27] VITALS: BP 146/72
[2022-01-12] MEDS ORDERED: MOBIC PO (16:30)
[2022-01-12] MEDS ORDERED: METOPROLOL SUCC25 MG PO (16:30)
[2022-01-12] MEDS ORDERED: SIMVASTATIN 20 MG TAB PO SCH (21:00)
[2022-01-13] MEDS ORDERED: LISINOPRIL 10 MG TAB PO SCH (09:00)
== END 2022-01-12 18:03 | disposition home or self-care (01) ==
LOC: ER 12:50 → ERHOLD 14:47 → MED/SURG 19:37
DX: R07.89 Other chest pain (principal); K51.90 Ulcerative colitis, unspecified, without complications; I10 Essential (primary) hypertension; E78.5 Hyperlipidemia, unspecified; Z88.2 Allergy status to sulfonamides; Z88.8 Allergy status to other drugs, medicaments and biological substances; Z20.822 Contact with and (suspected) exposure to COVID-19; N40.0 Benign prostatic hyperplasia without lower urinary tract symptoms; K21.9 Gastro-esophageal reflux disease without esophagitis; E78.00 Pure hypercholesterolemia, unspecified; I25.10 Atherosclerotic heart disease of native coronary artery without angina pectoris
CPT/HCPCS: 36415 ×2; 71045; 71260; 80053 ×2; 80061; 81001; 82550 ×2; 82553 ×2; 83036; 83690; 83735; 83880; 84100; 84443; 84484 ×2; 85025 ×2; 85379; 93005; 94760; 94799 ×2; 96360; 99284; G0378 ×2; J2270 ×2; J2405 ×2; J7030 ×2; Q9967; U0002